=== PATIENT | female | born 1980 | race Caucasian/White ===

== ENCOUNTER → 2017-10-07 | Day surgery (SDC) | payer OTHER ==
[~2017-10-07] VITALS: Ht 154.9 cm; Wt 61.2 kg
[~2017-10-07] MED LIST: ANTIVERT 12.512.5 MG PO; CARAFATE 1GM1000 MG PO; DOCUSATE SODIU100 MG PO; DULCOLAX5 M1 PO; FIBER GUMMIES2 GM PO; IBUPROFEN800 MG PO; LIDOCAINE VISC100 M2 PO; MOTRIN 600 MG600 MG PO; PRILOSEC OTC20 MG PO; PROTONIX 40MG T40 MG PO; ZOFRAN4 M1 PO; [UNRECOGNIZED DRUG - SUPPLY]
--- NOTE | 2017-10-07 16:35 | Operative Report ---
Operative/Inv Procedure Report Surgery Date: 10/07/17 Name of Procedure: Laparoscopic tubal sterilization Pre-Operative Diagnosis: Multiparity Post-Operative Diagnosis: Same Estimated Blood Loss: less than 50ml Surgeon/Development Team Lead: Mariposa Wilkerson MD Anesthesia: general endotracheal tube, block Operative/Procedure Note Note: Procedure note patient was taken the operating room placed supine position after adequate anesthesia patient placed in dorsolithotomy position the vagina was prepped and draped in sterile fashion the abdomen was prepped and draped so fashion this point CO2 tenaculum was placed on the Intralipid cervix gentle downward traction the CO2 tenaculum was placed on the Intralipid cervix and gentle downward traction of the placement the Casillas cannula on the patient tolerated this well surgeon regowned and gloved at the level the umbilicus stab incision was made to allow for the entry of Veress needle the abdomen was insufflated possibly 4 L of CO2 to liver edge dullness which point the Veress needle was removed a 10 mm on trocar was inserted atraumatically at the umbilicus through that sheath a laparoscope was placed under direct visualization a 5 mm port was placed 2 finger breadths of symptoms pubis in the midline patient tolerated that well through that port clamped Kleppinger was placed the right tube was picked up carried to its fimbriated end possibly 7 cm that tube was Bovie coagulated left tube was picked up carried to its fimbriated end I's was 7 cm that tube was Bovie quite patient tolerated that well at this point a pictures were taken maximal CO2 was removed from the abdomen once instruments removed from the abdomen under direct visualization patient tolerated that well the incision the umbilicus was oversewn using 03-year-old interrupteds were used on both skin incisions Marcaine was injected underneath the skin patient I'll that well sterile dressings were applied the patient was returned supine position after oral to minimal from the vagina and the Mera had been removed and the patient was awakened from anesthesia and transferred recovery room awake alert counts correct Findings: Slightly enlarged uterus normal tubes and ovaries bilaterally adhesions of the omentum from the previous surgery on her bladder
== END ==
LOC: STS 02:00
DX: Z30.2 Encounter for sterilization (principal)
CPT/HCPCS: 81025; J0131; J2250; J3490